=== PATIENT | female | born 1995 | race Caucasian/White ===

== ENCOUNTER 2017-09-16 20:03 | Emergency (ER) | payer OTHER ==
[2017-09-16 20:13] VITALS: BP 115/80
--- NOTE | 2017-09-16 20:38 | ER Document Report ---
HPI - HPI Pain Level: 2 Notes: Patient is a 21-year-old female no significant past medical history who presents to the ED complaining of scalp soreness posteriorly and anteriorly midline 1 day. Patient states that 2 days ago she was out in the sun all day and had her hair parted down the middle. Patient states that she noticed some redness in that area the next day and some soreness associated without any blistering or purulent discharge. She is otherwise eating and drinking without any difficulties. She is urinating normally and having normal bowel movements. Denies any other recent illness. No other concerns or complaints at this time. No history of MRSA. Denies any headache, fever, head injury, neck pain, URI, sore throat, chest pain, palpitations, syncope, cough, shortness of breath , wheeze, dyspnea, abdominal pain, nausea/vomiting/diarrhea, urinary retention, dysuria, hematuria. - ROS Systems Reviewed and Negative: Yes All other systems reviewed and negative Past Medical History - Social History Smoking Status: Never Smoker Family History: Reviewed & Not Pertinent Vertical Provider Document - CONSTITUTIONAL Agree With Documented VS: Yes Notes: PHYSICAL EXAMINATION: GENERAL: Well-appearing, well-nourished and in no acute distress. HEAD: Atraumatic, normocephalic. EYES: Pupils equal round and reactive to light, extraocular movements intact, sclera anicteric, conjunctiva are normal. ENT: Nares patent and without discharge. oropharynx clear without exudates. No tonsilar hypertrophy or erythema. Moist mucous membranes. NECK: Normal range of motion, supple without lymphadenopathy LUNGS: Breath sounds clear to auscultation bilaterally and equal. No wheezes rales or rhonchi. HEART: Regular rate and rhythm without murmurs, rubs, gallops. Musculoskeletal: FROM to passive/active. Strength 5+/5. Extremities: No cyanosis, clubbing, or edema b/l. Peripheral pulses 2+. Capillary refill less than 3 seconds. NEUROLOGICAL: Cranial nerves grossly intact. Normal speech, normal gait. PSYCH: Normal mood, normal affect. SKIN: Scalp: There is a 1st degree appearing burn to the midline scalp ( secondary to sun) w/o any blistering, open wound, purulent discharge, abscess, or cellulitis appreciated. The burn is noted to be in the "exact area" that patient states she parted her hair. + mild discomfort to palp of the entire burned area. + blanching. - INFECTION CONTROL TRAVEL OUTSIDE OF THE [place] IN LAST 30 DAYS: No Course - Re-evaluation Re-evalutation: 09/16/17 20:38 Patient is an afebrile, well-hydrated, 21-year-old female who presents to the ED with first degree burn to her scalp. Vitals are acceptable. PE is otherwise unremarkable. Patient has no significant tachycardia, tachypnea, or hypoxia. She is tolerating p.o. without difficulties and is nontoxic- appearing. There is no sign of bacterial infection at this time. Patient states that she parted her hair in that exact line with the redness is associated and was out in the sun all day 2 days ago and her symptoms started the next day, which correlates with the physical exam findings. No labs or imaging warranted at this time based on H&P. Recommend conservative measures for symptoms. Recheck with your PCM in 3-5 days. Return to the ED with any worsening/concerning symptoms otherwise as reviewed in discharge. Patient is in agreement. - Vital Signs Vital signs: Temp Pulse Resp BP Pulse Ox 98.0 F 68 18 115/80 99 09/16/17 20:12 09/16/17 20:12 09/16/17 20:12 09/16/17 20:12 09/16/17 20:12 Discharge - Discharge Clinical Impression: Sunburn of first degree Condition: Stable Disposition: HOME, SELF-CARE Instructions: [facility] ([facility]), [facility] ([facility]) Additional Instructions: Keep the skin clean Wash with soap and water Tylenol/ibuprofen if needed Triple antibiotic ointment daily Take medication as directed Use moisturizers Use sunscreen when out in the sun Monitor for any worsening symptoms Recheck with your PCM in 3-5 days Return to the ED with any worsening symptoms and/or development of fever, headache, chest pain, palpitations, syncope, shortness of breath, trouble breathing, abdominal pain, n/v/d, abscess, purulent discharge, red streaks, swelling, or other worsening symptoms that are concerning to you. Referrals: [facility] [Provider Group] - Follow up as needed [facility] [Provider Group] - Follow up as needed
== END 2017-09-16 20:48 | disposition home or self-care (01) ==
LOC: ER 20:03
DX: L55.0 Sunburn of first degree (principal)
CPT/HCPCS: 99282